=== PATIENT | female | born 1985 | race Caucasian/White ===

== ENCOUNTER 2017-01-18 05:34 | Emergency (ER) | payer BC, MEDICAID ==
[2017-01-18 05:54] VITALS: BP 152/100
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
== END 2017-01-18 07:09 ==
LOC: JD.ED 05:34
DX: F19.10 Other psychoactive substance abuse, uncomplicated (principal)
CPT/HCPCS: 99282; 99284